=== PATIENT | male | born 1975 | race Caucasian/White ===

== ENCOUNTER 2021-08-19 07:56 | Outpatient (REF) | payer BC, SELFPAY ==
[2021-08-19 08:29] LABS: COVID-19 Test Negative (Negative); IDNOW Serial# 16C4AD1C
== END 2021-08-19 07:57 | disposition home or self-care (01) ==
LOC: HO.LAB 07:56
PROVIDERS: Visit Provider Internal Medicine
DX: Z20.822 Contact with and (suspected) exposure to COVID-19 (principal)
CPT/HCPCS: 36415; 87635; C9803